=== PATIENT | female | born 1965 | race Hispanic/Latino ===

== ENCOUNTER 2022-02-18 10:25 | Outpatient (CLI) | payer OTHER | END 2022-02-18 10:26 | disposition home or self-care (01) | LOC: BICMAMMO 10:25 | PROVIDERS: ATTEND Family Medicine | DX: Z12.31 Encounter for screening mammogram for malignant neoplasm of breast (principal); Z91.89 Other specified personal risk factors, not elsewhere classified | CPT/HCPCS: 77063; 77067 ==